=== PATIENT | female | born 1995 | race Caucasian/White ===

== ENCOUNTER 2021-07-09 19:54 | Emergency (ER) | payer MEDICAID, SELFPAY ==
[2021-07-09 19:55] VITALS: BP 133/99; PULSE 132; RESP 18; TEMP 36.9; O2SAT 98; BMI 42.8
[2021-07-09 20:19] VITALS: RESP 17
--- NOTE | 2021-07-09 20:19 | US_ITS ---
INDICATION: pelvic pain -- r/o ectopic EXAMINATION: US OB Transvaginal TECHNIQUE: Transabdominal pelvic ultrasound was performed. Grayscale, spectral waveform, and color flow Doppler evaluation of the adnexa. COMPARISON: None. FINDINGS: UTERUS: Measures 8.2 x 5 x 3.6 cm. Arcuate configuration. Multiple nabothian cysts. RIGHT OVARY: Measures 4 x 2.7 x 2.4 cm. Normal. LEFT OVARY: Measures 2.7 x 2.2 x 2.1 cm. Normal. FREE FLUID: None. INTRAUTERINE GESTATIONAL SAC(s) (size/shape): Not visualized. No adnexal ectopic visualized. US/Transvaginal w/Preg US IMPRESSION: of unknown location. No intrauterine or adnexal gestational sac. Recommend serial beta hCGs and follow-up OB ultrasound in 1-2 weeks. Incidental arcuate uterus. Electronically Signed: Andrade Garcia MD at 21:41 EST Tel , Service support ,
--- NOTE | 2021-07-09 20:31 | ED.VIS.FEGU ---
HPI HPI - Female History of Present Illness Chief Complaint: Vag Bleeding Narrative Narrative: G4, P0 with a positive test 5 to 6 weeks ago. Multiple faint 1 since then. Patient with abnormal menstrual periods, therefore unclear on dates. She had miscarriages on her previous pregnancies. Over the last 2 weeks she noted mild spotting of blood. It stopped 3 days ago. She is visiting from [place] today, increasing pelvic pain today. She reports took Tylenol and Motrin. Symptoms not improving. She does not know her blood type. She states she is awaiting to make an appointment with her OB back at home when she is 8 weeks. Denies urinary symptoms. Has not had an ultrasound. PFSH PFSH Home Medications multivitamin 1 tab PO DAILY 07/09/21 [History Last Taken Unknown] Allergy/AdvReac Type Severity Reaction Status Date / Time acetaminophen [From [place]] Allergy Hives Verified 07/09/21 19:59 hydrocodone [From [place]] Allergy Hives Verified 07/09/21 19:59 Iodinated Contrast Media Allergy Hives Verified 07/09/21 20:00 [CONTRASTS] morphine Allergy Hives Verified 07/09/21 19:59 Social History Smoking Status: Never smoker ROS ROS ED Constitutional Constitutional ED: Denies chills, fever(s) or sweats Eyes Eyes: Denies change in vision ENT ENT ED: Denies dysphagia or sore throat Cardiovascular Cardiovascular: Denies chest pain, leg edema, palpitations or racing heartbeat Respiratory/Chest Respiratory/Chest: Denies cough, dyspnea or dyspnea on exertion Gastrointestinal Gastrointestinal: Denies abdominal pain, diarrhea, nausea or vomiting Genitourinary Genitourinary ED: Reports other Details: Pelvic pain ; Denies dysuria, hematuria or urinary frequency Musculoskeletal Musculoskeletal: Denies back pain, extremity pain or neck pain Integumentary Denies rash or wounds Neurologic Neurologic: Denies headache(s), paresthesias or weakness EXAM Physical Exam Const Vital Signs: 07/09/21 19:55 07/09/21 20:19 07/09/21 22:07 Temperature 98.5 F Temperature Source Temporal Pulse Rate 132 H 104 H Respiratory Rate 18 17 17 Blood Pressure 133/99 H Blood Pressure Mean 110 Pulse Ox 98 98 Oxygen Delivery Method Room Air Positive well nourished, well developed and obese General Appearance ED: well developed and NAD Nutritional Appearance: obese HEENT Reports moist mucous membranes normocephalic and atraumatic Eyes PERRL, EOMs intact bilaterally and conjunctivae normal General Eye ED: Yes normal appearance of both eyes Neck no lymphadenopathy and supple General: Negative for tenderness Chest Wall Chest: Negative for tenderness Resp normal respiratory effort and normal air movement Effort and Inspection: symmetric chest movement; Negative for respiratory distress Cardio regular rhythm and no murmurs Rate: tachycardic and other Other Details: Heart rate 118 on my evaluation. Peripheral Pulses: pulses 2+ throughout GI normal to inspection, nondistended, normoactive bowel sounds and non-tender Palpation: Negative for guarding or rebound tenderness present Narrative: Tender palpation lower pelvic region without guarding or rebound. Back/Spine no CVA tenderness and no thoracic nor lumbar tenderness Extremity normal to inspection General Extremety ED: Negative for edema or tenderness General Extremity: Negative for edema Neuro oriented x3 and no sensory deficits noted Sensorium / Orientation: awake and alert Skin no rashes or lesions noted and no wounds MDM MDM MDM Narrative Medical decision making narrative: Patient presented reported multiple home pregnancies that were positive 5 to 6 weeks ago. She had vaginal bleeding that has resolved 3 days ago. Pain increased today. With her history work-up initiated to rule out ectopic . Ultrasound ordered labs were obtained. However hCG quant returned less than 1. Ultrasound obtained negative for visualization gestational . Normal ovaries, nabothian cysts were noted on the uterus. She initially treated with fentanyl. Reevaluation discussed with patient likely complete miscarriage at some point with her vaginal bleeding. With a negative hCG quant no concerns for ectopic at this time. Reevaluation abdomen was soft. Discussed findings with the patient. She has had multiple miscarriages, discussed with patient will likely need outpatient work-up and further rule out due to her miscarriages. She will follow up with her [facility] back home in [place]. She will use Tylenol or Motrin as needed. Patient is being discharged under pandemic conditions under declared global, national and state disaster activation, with limited medical resources. Patient and community understands this. Results discussed in layman's terms to the patient satisfaction. All questions answered in layman's terms. Patient understands importance of follow-up care as directed. Patient has been instructed to return to the ED immediately if new symptoms, problems, or questions occur. We mutually agree with the plan of disposition. The patient understand that they may call or return with any questions or concerns at any time. Lab Data Attestation: I reviewed the patient's lab results. Labs: Laboratory Results - last 24 hr 07/09/21 07/09/21 07/09/21 20:25 20:25 20:25 WBC 9.6 RBC 4.49 Hgb 12.3 Hct 38.1 MCV 84.9 MCH 27.4 MCHC 32.3 RDW Std Deviation 37.8 RDW Coeff of Chhaya 12.5 Plt Count 276 MPV 10.3 Immature Gran % (Auto) 0.400 Neut % (Auto) 55.1 Lymph % (Auto) 35.5 Cecil % (Auto) 7.0 Eos % (Auto) 1.3 Baso % (Auto) 0.7 Absolute Neuts (auto) 5.3 Absolute Lymphs (auto) 3.39 Nucleated RBC % 0 HCG, Quant < 1 Urine Color Urine Clarity Urine pH Ur Specific [place] Urine Protein Urine Glucose (UA) Urine Ketones Urine Occult Blood Urine Nitrite Urine Bilirubin Urine Urobilinogen Ur Leukocyte Esterase Urine RBC Urine WBC Ur Squamous Epith Cells Urine Bacteria Urine Mucus Blood Type TNP 07/09/21 07/09/21 20:25 20:50 WBC RBC Hgb Hct MCV MCH MCHC RDW Std Deviation RDW Coeff of Chhaya Plt Count MPV Immature Gran % (Auto) Neut % (Auto) Lymph % (Auto) Cecil % (Auto) Eos % (Auto) Baso % (Auto) Absolute Neuts (auto) Absolute Lymphs (auto) Nucleated RBC % HCG, Quant Urine Color Yellow Urine Clarity Clear Urine pH 6.0 Ur Specific [place] 1.020 Urine Protein Negative Urine Glucose (UA) Normal Urine Ketones 5 H Urine Occult Blood Negative Urine Nitrite Negative Urine Bilirubin Negative Urine Urobilinogen Normal Ur Leukocyte Esterase 25 H Urine RBC 0 SEEN Urine WBC 0-5 SEEN Ur Squamous Epith Cells 0-5 SEEN Urine Bacteria 0 SEEN Urine Mucus 0 SEEN Blood Type A POSITIVE Radiography Diagnostic Testing: Clinical Impression(s) from Imaging Studies Obstetrics Ultrasound 07/09/21 20:19 IMPRESSION: of unknown location. No intrauterine or adnexal gestational sac. Recommend serial beta hCGs and follow-up OB ultrasound in 1-2 weeks. Incidental arcuate uterus. Electronically Signed: Andrade Garcia MD at 21:41 EST Tel , Service support , Discharge Plan Triage Chief Complaint: Vag Bleeding ED Provider: Chad Mejia Dx/Rx/DC Orders Clinical Impression: Complete miscarriage, Pelvic pain Instructions: ED MISCARRIAGE Completed, ED Pelvic Pain, Unknown Cause Prescriptions: No Action multivitamin Tablet 1 tab PO DAILY RF: 0 Referrals: MARIE SALTER [Other] Activity Restrictions/Additional Instructions: Your level is negative. Ultrasound normal ovaries, multiple nabothian cysts seen on your uterus. Follow-up with your [facility] back home for discussion for potential work-up due to multiple miscarriages. Disposition Disposition: Home, Self Care Discharge Date/Time: 07/09/21 22:10
[2021-07-09] MEDS: 0.9% Normal Saline 1,000 ML 1000 ML IV (20:40)
[2021-07-09 20:44] LABS: Absolute Lymphocyte Count 3.39 X10^3/uL (0.83-4.51); Absolute Neutrophil Count 5.3 X10^3/uL (2.0-7.7); Basophil# 0.07 X10^3/uL; Basophil% 0.7 % (0-1); Eosinophil# 0.12 X10^3/uL; Eosinophils% 1.3 % (0-5); Hematocrit 38.1 % (37-47); Hemoglobin 12.3 g/dL (12.0-15.0); Lymphocyte # 3.39 X10^3/ul (0.83-4.51); Lymphocyte % 35.5 % (19-41); Mean Corp Hgb Conc 32.3 g/dL (32-36); Mean Corpuscular Hgb 27.4 pg (27.0-32.0); Mean Corpuscular Volume 84.9 fL (81-99); Mean Platelet Vol. 10.3 fl (6.2-12.0); Monocyte# 0.67 X10^3/uL; NRBC Flagged by Analyzer 0 % (0-5); Neutrophil # 5.27 X10^3/uL (2.7-7.7); Neutrophil % 55.1 % (47-70); Platelet Count 276 K/mm3 (150-450); RBC Distribution Width CV 12.5 % (11.6-14.6); RBC Distribution Width SD 37.8 fl (35.1-43.9); Red Blood Count 4.49 M/mm3 (4.2-5.4); White Blood Count 9.6 K/mm3 (4.4-11.0)
[2021-07-09 20:57] LABS: Bacteria 0 SEEN /hpf (None Seen); Mucous, Urine 0 SEEN /hpf (<or=2+); Red Blood Cells-Urine 0 SEEN /hpf (0-5)
[2021-07-09 20:58] LABS: Color, Urine Yellow (Yellow); Glucose, Dipstick Normal (Normal); Ketone-Dipstick 5 mg/dl (Negative); Leukocyte Esterase-Dipstick 25 /ul (Negative); Nitrite-Dipstick Negative (Negative); Occult Blood-Urine Negative /ul (Negative); Protein-Dipstick Negative (Negative); Urine Bilirubin Dipstick Negative (Negative); Urine Clarity Clear (Clear); Urine Urobilinogen Normal (Normal)
[2021-07-09 21:06] LABS: Squamous Epithelial Cells - UA 0-5 SEEN /hpf (5-10); White Blood Cells 0-5 SEEN /hpf (0-5)
[2021-07-09 21:19] LABS: hCG Titer Quant., Serum < 1 mIU/mL (1-3)
[2021-07-09 22:07] VITALS: PULSE 104; RESP 17; O2SAT 98
== END 2021-07-09 22:10 | disposition home or self-care (01) ==
PROVIDERS: Emergency Provider Emergency Medicine; Visit Provider Emergency Medicine
DX: O03.9 Complete or unspecified spontaneous abortion without complication (principal); O99.211 Obesity complicating pregnancy, first trimester; R10.2 Pelvic and perineal pain; E66.9 Obesity, unspecified; Z3A.01 Less than 8 weeks gestation of pregnancy
CPT/HCPCS: 76817; 81001; 84702; 85025; 86900; 86901; 96360; 99283; J7030; A4216